=== PATIENT | female | born 1990 | race African-American/Black ===

== ENCOUNTER 2023-06-03 17:08 | Emergency (ER) | payer OTHER ==
[2023-06-03] VITALS (7 sets, daily range): BP systolic 136–146; BP diastolic 66–104
[~2023-06-03] VITALS: Ht 157.5 cm; Wt 83.0 kg
[2023-06-03] MEDS ORDERED: ZPAK PO (19:04)
[2023-06-03] MEDS ORDERED: MEDDOSEPAK PO (19:04)
== END 2023-06-03 19:20 | disposition home or self-care (01) ==
LOC: ED 17:08
DX: J02.9 Acute pharyngitis, unspecified (principal); Z20.822 Contact with and (suspected) exposure to COVID-19